=== PATIENT | male | born 1980 | race Caucasian/White ===

== ENCOUNTER → 2016-08-23 | Outpatient (CLI) | payer BC | LOC: MRI 10:30 | DX: C83.70 Burkitt lymphoma, unspecified site (principal); R93.0 Abnormal findings on diagnostic imaging of skull and head, not elsewhere classified | CPT/HCPCS: 70553; A9577 ==

== ENCOUNTER → 2016-09-24 | Outpatient (CLI) | payer BC | LOC: EMI 09-18 10:00 | DX: C83.70 Burkitt lymphoma, unspecified site (principal); M47.812 Spondylosis without myelopathy or radiculopathy, cervical region; R93.8 Abnormal findings on diagnostic imaging of other specified body structures; R90.89 Other abnormal findings on diagnostic imaging of central nervous system | CPT/HCPCS: 70553; 72156; A9577; J7050 ==

== ENCOUNTER → 2016-09-27 | Outpatient (CLI) | payer BC | LOC: EMI 09-19 10:00 | DX: C83.70 Burkitt lymphoma, unspecified site (principal); R93.8 Abnormal findings on diagnostic imaging of other specified body structures | CPT/HCPCS: 72157; 72158; A9577; J7050 ==

== ENCOUNTER 2016-11-05 09:06 | Emergency (ER) | payer BC | END 2016-11-05 12:40 | disposition home or self-care (01) | LOC: ER1 09:06 | DX: S76.911A Strain of unspecified muscles, fascia and tendons at thigh level, right thigh, initial encounter (principal); Z88.8 Allergy status to other drugs, medicaments and biological substances; X58.XXXA Exposure to other specified factors, initial encounter | CPT/HCPCS: 73552; 93971; 99284 ==

== ENCOUNTER → 2016-11-09 | Outpatient (CLI) | payer BC | LOC: EMI 11-07 11:00 | DX: C83.70 Burkitt lymphoma, unspecified site (principal); C83.80 Other non-follicular lymphoma, unspecified site; R22.0 Localized swelling, mass and lump, head | CPT/HCPCS: 70553; A9577; J7050 ==

== ENCOUNTER → 2016-11-30 | Outpatient (CLI) | payer BC ==
[~2016-11-30] VITALS: Ht 175.3 cm; Wt 80.3 kg
[2016-11-30 15:27] LABS: HEMOGLOBIN 9.8 gm/dl (14.0-17.5)
== END ==
LOC: OPSV 14:37
PROVIDERS: Internal Medicine Hematology & Oncology
DX: C83.70 Burkitt lymphoma, unspecified site (principal)
CPT/HCPCS: 36430; 36592; 85014; 85018; 85049; 86900; 86901; J7050; P9037; Q0163